=== PATIENT | male | born 1950 ===

== ENCOUNTER 2018-03-02 17:37 | Emergency (ER) | payer OTHER ==
[2018-03-02 17:52] VITALS: BP 154/76
--- NOTE | 2018-03-02 18:08 | UC ---
Back Pain HPI - HPI Summary HPI Summary: 67 yo M p/w sudden onset R dull flank pain. Radiates to R testicle. Constant since onset but worsens in waves and is associated with nausea when at it's worst. No hx of similar pain in past. No hematuria or dysuria. Had CT scan once several months ago which he believes showed a stone in his kidney, but he's had no nephrolithiasis in past. Denies significant PMH. - History of Current Complaint Chief Complaint: UCLowerExtremity Stated Complaint: LOWER BACK/ABD/GROIN PAIN Time Seen by Provider: 03/02/18 17:52 Hx Obtained From: Patient Onset/Duration: Sudden Onset, Still Present Timing: Constant Pain Intensity: 9 - Allergies/Home Medications Allergies/Adverse Reactions: Allergies Allergy/AdvReac Type Severity Reaction Status Date / Time No Known Allergies Allergy Verified 03/02/18 17:45 Home Medications: Home Medications NK [No Home Medications Reported] 03/02/18 [History Confirmed 03/02/18] PMH/Surg Hx/FS Hx/Imm Hx - Surgical History Surgical History: Yes Surgery Procedure, Year, and Place: hernia 1972 - Social History Alcohol Use: Rare Substance Use Type: None Smoking Status (MU): Never Smoked Tobacco - Immunization History Most Recent Tetanus Shot: unsure Review of Systems Genitourinary: Negative All Other Systems Reviewed And Are Negative: Yes Physical Exam Triage Information Reviewed: Yes Appearance: Well-Appearing, No Pain Distress, Well-Nourished Vital Signs: Initial Vital Signs Temp 98.4 F 03/02/18 17:46 Pulse 55 03/02/18 17:46 Resp 15 03/02/18 17:46 BP 154/76 03/02/18 17:46 Pulse Ox 99 03/02/18 17:46 Vital Signs Reviewed: Yes Eyes: Positive: Conjunctiva Clear Respiratory: Positive: No respiratory distress, No accessory muscle use Abdomen Description: Positive: Nontender, Soft, CVA Tenderness (R). Negative: CVA Tenderness (L), Distended, Guarding Male Genital Exam: Positive: Normal Genitalia, No Hernia. Negative: Epididymal Tenderness, Erythema, Inguinal Tenderness, Lesions, Scrotum Tenderness (R), Scrotum Tenderness (L), Testicular Tenderness (R), Testicular Tenderness (L), Urethral Discharge Skin Exam: Normal Back Pain Course/Dx - Differential Dx/Diagnosis Differential Diagnosis/HQI/PQRI: Aneurysm, Herniated Disc, Renal Colic, Strain, Sprain Provider Diagnoses: Flank pain Discharge - Sign-Out/Discharge Documenting (check all that apply): Patient Departure All imaging exams completed and their final reports reviewed: No Studies - Discharge Plan Condition: Stable Disposition: HOME Referrals: Kristi Fountain MD [Primary Care Provider] - Additional Instructions: Go immediately to an Emergency Room for evaluation of your flank pain/ testicular pain - Billing Disposition and Condition Condition: STABLE Disposition: Home
== END 2018-03-02 18:12 | disposition home or self-care (01) ==
LOC: UCCORT 17:37
DX: R10.9 Unspecified abdominal pain (principal)
CPT/HCPCS: 81003; 99212; G0463